=== PATIENT | male | born 1955 | race African-American/Black ===

== ENCOUNTER 2016-12-11 19:26 | Emergency (ER) | payer MEDICAID, OTHER ==
[~2016-12-11] VITALS: Ht 180.3 cm; Wt 72.0 kg
[2016-12-11] MEDS ORDERED: SODIUM CHLORIDE 0.9% 1,000 ML IV ONE (20:02)
[2016-12-11 20:37] LABS: BASOPHILS % 1.1 % (0.0-2.0); EOSINOPHILS % 3.7 % (0.0-5.0); HEMATOCRIT. 46.9 % (42.0-52.0); HEMOGLOBIN. 15.6 g/dL (14.0-18.0); LYMPHOCYTES % 55.7 % (20.0-50.0); MEAN CORPUSCULAR HEMOGLOBIN 26.3 pg (28.0-32.0); MEAN CORPUSCULAR VOLUME 79.3 fL (80.0-94.0); MEAN PLATELET VOLUME 6.8 fl (7.4-10.4); MONOCYTES % 4.2 % (2.0-8.0); NEUTROPHILS % 35.3 % (40.0-76.0); PLATELET 261 x1000/uL (130-400); RED BLOOD CELL COUNT 5.92 mill/uL (4.7-6.1); RED CELL DISTRIBUTION WIDTH 16.1 % (11.6-14.6)
[2016-12-11 20:39] LABS: CHLORIDE 112 mEq/L (98-107); INR 1.1; PROTHROMBIN TIME 11.1 sec (9.4-11.6)
[2016-12-11 20:41] LABS: CARBON DIOXIDE 23 mEq/L (21-32)
[2016-12-11 20:49] LABS: CREATINE KINASE 312 IU/L (39-308); ETHANOL BLOOD 214 mg/dL; TROPONIN I < 0.02 ng/mL (0.00-0.04)
[2016-12-12 06:07] VITALS: BP 120/68
== END 2016-12-12 06:07 | disposition home or self-care (01) ==
LOC: ER 19:32
DX: T51.0X1A Toxic effect of ethanol, accidental (unintentional), initial encounter (principal); G92 Toxic encephalopathy; F19.10 Other psychoactive substance abuse, uncomplicated; Y92.89 Other specified places as the place of occurrence of the external cause
CPT/HCPCS: 36415; 70450; 71010; 80053; 82550; 83880; 84443; 84484; 85025; 85610; 93005; 96360; 96361; 99285; G0482; J7030